=== PATIENT | male | born 1955 | race Caucasian/White ===

== ENCOUNTER 2016-03-09 08:05 | Emergency (ER) | payer OTHER ==
[2016-03-09 08:24] VITALS: BP 134/89; PULSE 70; RESP 18; TEMP 98; O2SAT 97
--- NOTE | 2016-03-09 08:36 | UCPHY ---
H & P Patient Type: New Chief Complaint Nursing Narrative: c/o RLQ pain x 2 days - has had hard pellet like stools for 1 wk - took stool softener yesterday and this am - is worried he may have appendisitis Time Seen by Provider: 03/09/16 08:15 HPI/ROS: This patient presents with a chief complaint of right lower quadrant abdominal pain which began 2 days ago. He is concerned about possibility of appendicitis although he has had no fever, no nausea, no vomiting and a good appetite. The pain does not radiate to his back. Sitting seems to make the pain better while movement seems to improve it. He describes his stools as being hard recently and he has been using his stool softener. REVIEW OF SYSTEMS: Constitutional: No fever, no malaise Eyes: No complaints ENT: Denies sore throat, nasal congestion, ear pain or other symptoms of a cold. Respiratory: No cough no shortness of breath Cardiac: No chest pain Gastrointestinal: See above Genitourinary: No frequency, dysuria or hematuria Musculoskeletal: Some back stiffness no actual pain Skin: Denies rash Neurological: No headache Source: Patient, RN notes reviewed Exam Limitations: No limitations - Personal History Current Tetanus Diphtheria and Acellular Pertussis (TDAP): Yes - Medical/Surgical History Other PMH: ortho/ back surg - Family History Significant Family History: No pertinent family hx - Social History Smoking Status: Never smoked - Physical Exam Exam: GENERAL: Well-appearing, well-nourished and in no acute distress. HEAD: Atraumatic, normocephalic. EYES: sclera anicteric, conjunctiva are normal. ENT: , nares patent, oropharynx clear without exudates. Moist mucous membranes. NECK: Normal range of motion, supple without lymphadenopathy or JVD. No tenderness LUNGS: Breath sounds clear to auscultation bilaterally and equal. No wheezes rales or rhonchi. HEART: Regular rate and rhythm without murmurs, rubs or gallops. ABDOMEN: Soft, minimal tenderness in the right lower quadrant, normoactive bowel sounds. No guarding, no rebound. No masses appreciated. EXTREMITIES: Normal range of motion, no pitting or edema. No clubbing or cyanosis. NEUROLOGICAL: Cranial nerves II through XII grossly intact. Normal speech, normal gait. PSYCH: Normal mood, normal affect. SKIN: Warm, dry, normal turgor, no visible rashes or lesions. Back: No CVA tenderness Constitutional: Initial Vital Signs Temperature (C) 36.6 C 03/09/16 08:21 Heart Rate 70 03/09/16 08:21 Respiratory Rate 18 03/09/16 08:21 Blood Pressure 134/89 H 03/09/16 08:21 O2 Sat (%) 97 03/09/16 08:21 O2 Delivery Mode Room Air Allergies/Adverse Reactions: cephalexin monohydrate [From Keflex] Allergy (Verified 07/25/12 21:34) Home Medications: Medication Instructions Recorded NK [No Known Home Meds] 03/09/16 Medical Decision Making - Diagnostics Imaging: A two view the x-ray of the abdomen is consistent with constipation and shows no other cause for abdominal pain. ED Course/Re-evaluation: The patient remained in good condition and stable throughout his stay in the department his condition was unchanged on discharge. Differential Diagnosis: I find nothing that would suggest that this patient's pain is secondary to a serious me intra-abdominal problems such as appendicitis, bowel obstruction, bowel perforation, ureteral colic or pyelonephritis. Departure - Departure Disposition: Home, Routine, Self-Care Clinical Impression: Abdominal pain Qualifiers: Abdominal location: right lower quadrant Qualifier Code: (R10.31) Right lower quadrant pain Condition: Good Instructions: Acute Abdominal Pain (ED), Constipation (ED) Additional Instructions: If the pain persists for more than 2 days you need to be re-evaluated. This is particularly important if you have a good bowel movement and the pain persists. If you develop fever, vomiting or increasing pain you should be seen immediately. Use a laxative such as Dulcolax tablets or MiraLax. - PQRS PQRS Measurement: Not applicable
--- NOTE | 2016-03-09 10:53 | DX ---
Two-way Abdomen: Supine and erect. Reason for examination: Abdominal pain. Findings: Moderately large amount of fecal material is seen throughout the colon most pronounced on t he right side. No free air is seen. No masses or abnormal calcifications are identified. Osseous stru ctures are normal for age. Multiple pelvic phleboliths are noted. Mild elevation of the right hemidia phragm is noted. Impression: Query constipation.
== END 2016-03-09 09:37 | disposition home or self-care (01) ==
LOC: CED 08:05
DX: K59.00 Constipation, unspecified (principal); R10.31 Right lower quadrant pain
CPT/HCPCS: 74020-PO; 99204-PO; G0463-PO